=== PATIENT | female | born 1955 | race Caucasian/White ===

== ENCOUNTER 2019-06-25 09:05 | Outpatient (CLI) | payer BC, OTHER ==
--- NOTE | 2019-06-25 11:05 | BD ---
BONE DENSITOMETRY USING DEXA: HISTORY: Post menopausal screening for osteoporosis. FINDINGS LUMBAR SPINE BMD (g/cm2) T-SCORE Z-SCORE L1 0.826 -1.5 -0.1 L2 0.837 -1.7 -0.2 L3 1.083 -0.0 1,6 L4 1.024 -0.3 1.3 TOTAL 0.951 -0.9 0.7 BMD (g/cm2) T-SCORE Z-SCORE NECK 0.655 -1.7 -0.4 TOTAL 0.735 -1.7 0.7 The 10 year fracture risk for a major osteoporotic fracture is 17% and for a hip fracture is 1.8%. IMPRESSION: Osteopenia. POS: [facility]
== END 2019-06-25 09:06 | disposition home or self-care (01) ==
LOC: BICMAMMO 09:05
PROVIDERS: ATTEND Internal Medicine Rheumatology
DX: M81.0 Age-related osteoporosis without current pathological fracture (principal); M85.89 Other specified disorders of bone density and structure, multiple sites
CPT/HCPCS: 77080